=== PATIENT | female | born 1935 | race Caucasian/White ===

== ENCOUNTER 2017-03-26 12:24 | Emergency (ER) | payer MEDICARE, OTHER ==
[~2017-03-26] VITALS: Ht 157.5 cm; Wt 104.3 kg
[~2017-03-26 12:24] MED LIST: ALBU8.5H8 INH; ASPI-859 PO; CALC-226 PO; FISH1CAP16 PO; FLUT1DIS3 INH; GLIP10TA74 PO; HYDR25TA4 PO; LOSA25TA3 PO; NOR10 PO; NORT10CA PO; OMEP20CA10 PO; PRAV40TA PO; SPIRIVA IH; TRAM50TA92 PO; VITD2000 PO
[2017-03-26 12:25] VITALS: BP_SYST 173
--- NOTE | 2017-03-26 12:26 | NUR ---
Arrived via [facility] ambulance with compliant of SOB which is worse today. Pt is not able to clearly describe history of present illness. Lungs diminished with scant wheezes. Pt had a nebulizer Tx just prior to calling 911 with slight improvement. Placed in room 6. Placed on manager local, blood pressure machine and pulse oximeter. To gown for exam. Side rails up. Report given to Madhav PRASAD.
--- NOTE | 2017-03-26 12:30 | NUR ---
ER at bedside examining patient.
--- NOTE | 2017-03-26 12:32 | NUR ---
Pt presents to ER c/o sob, brought in by [facility] ambulance. Pt denies chest pain, N/V, reports pain 0/10. Pt reports history of COPD, HTN, DM. Pt is AOX4, wheezing noted on auscultation.
--- NOTE | 2017-03-26 12:35 | NUR ---
[employer] at bedside for breathing tx. Pt tolerating well, will continue to monitor.
[2017-03-26] MEDS ORDERED: ALBUTEROL SULFATE 0.083% 2.5 MG/3 ML VIAL.NEB INH ONE (12:36)
[2017-03-26] MEDS ORDERED: IPRATROPIUM BROM 0.5 MG/2.5 ML VIAL.NEB (ATROVENT) INH ONE (12:36)
--- NOTE | 2017-03-26 12:56 | NUR ---
EKG performed at by Sabina PRASAD. Physician given copy of EKG for review.
--- NOTE | 2017-03-26 13:00 | NUR ---
radiology at bedside for xray.
[2017-03-26 13:18] LABS: BASOPHILS # (AUTO) 0.1 K/uL (0.0-0.2); BASOPHILS % (AUTO) 0.5 % (0.0-2.0); EOSINOPHILS # (AUTO) 0.5 K/uL (0.0-0.4); EOSINOPHILS % (AUTO) 3.5 % (0.0-4.0); HEMOGLOBIN 9.8 g/dL (12.0-16.0); LYMPHOCYTES % (AUTO) 7.2 % (20.5-51.5); MEAN CORPUSCULAR HEMOGLOBIN 27 pg (27-31); MEAN CORPUSCULAR HGB CONC 32 % (32-36); MEAN CORPUSCULAR VOLUME 84 fL (79.0-98.0); MONOCYTES # (AUTO) 0.9 K/uL (0.0-1.0); MONOCYTES % (AUTO) 6.7 % (1.7-9.3); NEUTROPHILS # (AUTO) 11.4 K/uL (1.8-7.7); NEUTROPHILS % (AUTO) 82.1 % (40.0-70.0); PLATELET COUNT (AUTO) 295 K/uL (130-430); RED BLOOD CELL COUNT(AUTO) 3.69 MIL/uL (4.2-6.2); RED CELL DISTRIBUTION WIDTH 14.1 % (9.0-15.0); WHITE BLOOD COUNT (AUTO) 13.9 K/uL (4.8-10.8)
[2017-03-26 13:27] LABS: ANION GAP 8 (5-15); CALCIUM 9.5 mg/dL (8.4-11.0); CHLORIDE 89 mmol/L (98-107); CREATININE 0.52 mg/dL (0.55-1.30); GLUCOSE 178 mg/dL (70-99); POTASSIUM 3.4 mmol/L (3.5-5.1); SODIUM SERUM 133 mmol/L (136-145); UREA NITROGEN, BLOOD 13 mg/dL (8-21)
[2017-03-26 13:32] LABS: ALANINE AMINOTRANSFERASE 10 U/L (12-78); ALBUMIN 3.3 g/dL (3.4-4.8); ASPARTATE AMINOTRANSFERASE 15 U/L (10-37); TOTAL BILIRUBIN 0.3 mg/dL (0.0-1.0)
[2017-03-26 13:35] LABS: PROTHROMBIN TIME 10.2 SECS (9.5-12.5)
[2017-03-26] MEDS ORDERED: cefTRIAXone 1 GM in D5W 50 ML IV ONE (14:15)
--- NOTE | 2017-03-26 14:30 | NUR ---
Dr. Garza at bedside providing pt with update on lab and diagnostic results.
--- NOTE | 2017-03-26 15:01 | NUR ---
Laboratory at bedside for blood draw.
--- NOTE | 2017-03-26 15:16 | NUR ---
[facility] will be accepting pt at [facility], Dr. Mast [phone] for report, ALS ETA 1600.
--- NOTE | 2017-03-26 15:25 | NUR ---
Dr Garza aware of patient's blood pressure and orders received for medication. Rajat reports that they will call back for updated vital signs.
[2017-03-26] MEDS ORDERED: FUROSEMIDE 100 MG/10 ML VIAL IVP ONE (15:30)
[2017-03-26] MEDS ORDERED: ENALAPRILAT DIHYDRATE 1.25 MG/ML VIAL IVP ONE (15:30)
[2017-03-26] MEDS ORDERED: cefTRIAXone 1 GM VIAL ONE (15:36)
--- NOTE | 2017-03-26 16:35 | NUR ---
Patient to be transferred to [facility]. Is being transferred due to higher level of care. Receiving facility has accepting physician and available space. ER physician has signed transfer form. Patient or responsible green party has agreed to transfer and signed form. Patient belongings inventoried and will be sent with patient. Copy of nursing notes, lab reports, EKG, Physicians Orders and X-rays to be sent with patient. Report called to the charge nurse, Zoey, at receiving facility. Receiving physician is . ambulance service has been called for transfer. ETA of 1600 was given but ambulance service still not arrived.
--- NOTE | 2017-03-26 16:35 | NUR ---
Report called and given to Zoey Charge Nurse at [facility].
--- NOTE | 2017-03-26 18:20 | NUR ---
Pt urine bag emptied before transport. 720cc of light yellow urine emptied.
[2017-03-26 18:30] VITALS: BP_SYST 132
--- NOTE | 2017-03-26 18:30 | NUR ---
ALS transport here to transfer pt to [facility]. Report given to OSMAR Lam. Pt VS stable, AOX4.
== END 2017-03-26 18:30 | disposition short-term general hospital (02) ==
LOC: SED 12:24
DX: I11.0 Hypertensive heart disease with heart failure (principal); I50.9 Heart failure, unspecified; J18.9 Pneumonia, unspecified organism; J44.9 Chronic obstructive pulmonary disease, unspecified; E11.9 Type 2 diabetes mellitus without complications; E78.00 Pure hypercholesterolemia, unspecified; Z79.899 Other long term (current) drug therapy; Z88.8 Allergy status to other drugs, medicaments and biological substances
CPT/HCPCS: 36415; 36600; 71010; 80053; 82803; 83605; 83880; 84484; 85025; 85610; 85730; 87040; 93005; 94640; 96365; 96375; 99285; J0696; J1940; J7060